=== PATIENT | male | born 2000 | race Caucasian/White ===

== ENCOUNTER 2024-08-18 11:14 | Inpatient (IN) | payer MEDICAID ==
[~2024-08-18] VITALS: Ht 177.8 cm; Wt 97.5 kg
[2024-08-18] MEDS: SODIUM CHLORIDE 0.9% 1,000 ML IVB ONE (12:15)
--- NOTE | 2024-08-18 12:24 | ED.PDOC ---
History of Present Illness HPI Comments 24 y/o M, with PMHx of kidney stones presents to the ED for CC of generalized weakness. Patient states, he has been experiencing symptoms of weakness onset, [id number]. Patient reports, being seen at [facility] for symptoms and being told to have bradycardia accompanied by urolithiasis and pyelone phritis. Patient endorses, being admitted to [facility] for symptoms however, symptoms have not resolved and he has returned to the facility on x3 separate occasions. Patient denies fever, chills, sweats, or cough. No other symptoms or modifying factors presents at this time. Chief Complaint: Flank Pain Time Seen by MD: 11:30 Primary Care Provider: Dr. Avani Brock Reviewed Notes: Nurses Notes, Medications, Allergies Allergies: Coded Allergies: NO KNOWN ALLERGIES (Unverified , 09/19/11) Information Source: Patient Mode of Arrival: Ambulatory Severity: Moderate Timing: Months Duration: Since onset Prehospital treatment: None Past Medical History PAST MEDICAL HISTORY: Kidney Stones Surgical History: Denies all surgeries Family History Family History: Unobtainable Social History Smoker: Non-Smoker Alcohol: Denies ETOH Use Drugs: Denies Drug Use Lives In: Home Constitutional: reports: weakness; denies: chills, diaphoresis, fatigue, fever, malaise, sweats, others EENTM: denies: blurred vision, double vision, ear bleeding, ear discharge, ear drainage, ear pain, ear ringing, eye pain, eye redness, hearing loss, mouth pain, mouth swelling, nasal discharge, nose bleeding, nose congestion, nose pain, photophobia, tearing, throat pain, throat swelling, voice changes, others Respiratory: reports: shortness of breath; denies: cough, hemoptysis, orthopnea, SOB at rest, SOB with excertion, stridor, wheezing, others Cardiovascular: reports: chest pain; denies: dizzy spells, diaphoresis, Dyspnea on exertion, edema, irregular heart beat, left arm pain, lightheadedness, palpitations, PND, syncope, others Gastrointestinal: reports: diarrhea, nausea, vomiting; denies: abdomen distended, abdominal pain, blood streaked bowels, constipated, dysphagia, difficulty swallowing, hematemesis, melena, poor appetite, poor fluid intake, rectal bleeding, rectal pain, others Genitourinary: denies: burning, dysuria, flank pain, frequency, hematuria, incontinence, penile discharge, penile sore, pain, testicle pain, testicle swelling, urgency, others Neurological: denies: dizziness, fainting, headache, left sided numbness, left sided weakness, numbness, paresthesia, pre-existing deficit, right sided numbness, right sided weakness, seizure, speech problems, tingling, tremors, weakness, others Musculoskeletal: denies: back pain, gout, joint pain, joint swelling, muscle pain, muscle stiffness, neck pain, others Integumetry: denies: bruises, change in color, change in hair/nails, dryness, laceration, lesions, lumps, rash, wounds, others Allergic/Immunocompromised: denies: Difficulty Healing, Frequent Infections, Hives, Itching, others Hematologic/Lymphatic: denies: anemia, blood clots, easy bleeding, easy bruising, swollen glands, others Endocrine: denies: excessive hunger, excessive sweating, excessive thirst, excessive urination, flushing, intolerance to cold, intolerance to heat, unexplained weight gain, unexplained weight loss, others Psychiatric: denies: anxiety, bipolar disorder, depression, hopeless, panic disorder, schizophrenia, sleepless, suicidal, others All Other Systems: Reviewed and Negative Physical Exam General Appearance: Mild Distress, Moderate Distress HEENT: Normal ENT Inspection, Pharynx Normal, TMs Normal Neck: Full Range of Motion, Non-Tender, Normal, Normal Inspection Respiratory: Chest Non-Tender, Lungs Clear, No Accessory Muscle Use, No Respiratory Distress, Normal Breath Sounds Cardiovascular: No Edema, No JVD, No Murmur, No Gallop, Normal Peripheral Pulses, Regular Rate/Rhythm Breast Exam: Deferred Gastrointestinal: No Organomegaly, No Pulsatile Mass, Normal Bowel Sounds, Soft, Tenderness, Other (Right costovertebral angle very painful probably from a kidney stone) Genitalia: Deferred Pelvic: Deferred Rectal: Deferred Extremities: No calf tenderness, Normal capillary refill, Normal inspection, Normal range of motion, Non-tender, No pedal edema Neurologic: Alert, crop nutrition scientist II-XII nml as Tested, No Motor Deficits, Normal Affect, Normal Mood, No Sensory Deficits Cerebellar Function: Normal Reflexes: Normal Skin: Dry, Normal Color, Warm Peripheral Pulses: 1+ carotid (R), 1+ carotid (L) Lymphatic: No Adenopathy Was a procedure done? Was a procedure done?: No EKG EKG : Pulse Rate (adult): [address] [place]: Normal Cardiac Rhythm: NSR, PAC's Differential Dx Considerations may include: electrolyte imbalance, infection, dehydration, anemia ureteral calculus X-Ray, Labs, Meds, VS Vital Signs Date Time Temp Pulse Resp B/P (MAP) Pulse Ox O2 Delivery O2 Flow Rate FiO2 08/18/24 16:00 98.3 97 14 100/55 (70) 100 98.3 08/18/24 14:15 90 12 100 Nasal Cannula* 2 28 08/18/24 14:15 98.2 90 12 110/59 (76) 100 98.2 08/18/24 13:05 82 08/18/24 12:49 97.7 57 20 122/81 (95) 99 97.7 08/18/24 12:49 57 20 99 Room Air 08/18/24 11:50 98.0 62 20 135/78 (97) 99 98.0 08/18/24 11:23 82 08/18/24 11:20 97.9 97 20 142/92 (109) 98 97.9 Lab Test 08/18/24 12:34 08/18/24 11:23 08/18/24 11:19 Range/Units White Blood Count 13.4 H 4.4-10.8 10^3/uL Red Blood Count 5.23 4.5-5.90 10^6/uL Hemoglobin 16.6 13.5-17.5 g/dL Hematocrit 46.2 41.0-53.0 % Mean Corpuscular Volume 88.3 80.0-100.0 fL Mean Corpuscular Hemoglobin 31.8 28.0-32.0 pg Mean Corpuscular Hemoglobin Concent 36.0 32.0-36.0 g/dL Red Cell Distribution Width 13.0 11.8-14.3 % Platelet Count 294 140-450 10^3/uL Mean Platelet Volume 8.7 6.9-10.8 fL Neutrophils (%) (Auto) 81.5 H 37.0-80.0 % Lymphocytes (%) (Auto) 10.7 10.0-50.0 % Monocytes (%) (Auto) 7.4 0.0-12.0 % Eosinophils (%) (Auto) 0.0 0.0-7.0 % Basophils (%) (Auto) 0.4 0.0-2.0 % Neutrophils # (Auto) 11.0 H 1.6-8.6 10 ^3/uL Lymphocytes # (Auto) 1.4 0.4-5.4 10 ^3/uL Monocytes # (Auto) 1.0 0-1.3 10 ^3/uL Eosinophils # (Auto) 0 0-0.8 10 ^3/uL Basophils # (Auto) 0.1 0-0.2 10 ^3/uL Nucleated Red Blood Cells 0.8 % D-Dimer, Quantitative < 0.19 0.0-0.49 mg/L FEU Sodium Level 140 136-145 mmol/L Potassium Level 4.1 3.5-5.1 mmol/L Chloride Level 104 98-107 mmol/L Carbon Dioxide Level 19 L 20-31 mmol/L Anion Gap 17 H 5-15 Blood Urea Nitrogen 16 9-23 mg/dL Creatinine 1.69 H 0.700-1.30 mg/dL Glomerular Filtration Rate Calc 57 >90 mL/min BUN/Creatinine Ratio 9.5 L 10.0-20.0 Serum Glucose 99 74-106 mg/dL Calcium Level 9.9 8.7-10.4 mg/dL Magnesium Level 2.0 1.6-2.6 mg/dL Total Bilirubin 0.9 0.2-1.0 mg/dL Aspartate Amino Transferase (AST) 19 <34 U/L Alanine Aminotransferase (ALT) 32 7-40 U/L Alkaline Phosphatase 89 46-116 U/L Total Protein 6.9 5.7-8.2 g/dL Albumin 4.9 H 3.2-4.8 g/dL Lipase 51 12-53 U/L Urine Color Yellow Yellow Urine Clarity Clear Clear Urine pH 6.0 5.0-9.0 Urine Specific [place] 1.035 1.001-1.035 Urine Protein Trace H Negative Urine Ketones 3+ H Negative Urine Blood Negative Negative /uL Urine Nitrite Negative Negative Urine Bilirubin Negative Negative Urine Urobilinogen Normal Negative mg/dL Urine Leukocyte Esterase Negative Negative /uL Urine RBC 3 0 - 3 /hpf Urine Microscopic WBC 3 0-3 /HPF Urine Squamous Epithelial Cells None seen <5 /hpf Urine Bacteria None seen None Seen /hpf Urine Mucus Few None Seen Urine Glucose Normal Normal mg/dL Urine Opiates Screen Neg NEGATIVE Urine Fentanyl Screen Neg NEGATIVE Urine Barbiturates Screen Neg NEGATIVE Urine Phencyclidine Screen Neg NEGATIVE Urine Amphetamines Screen Neg NEGATIVE Urine Benzodiazepines Screen Neg NEGATIVE Urine Cocaine Screen Neg NEGATIVE Urine Cannabinoids Screen Pos NEGATIVE POC Glucose 107 H 70-106 mg/dl Current Medications Medications (Trade) Dose Ordered Sig/Ryan Route Start Time Stop Time Status Last Admin Sodium Chloride 1,000 ml @ 1,000 mls/hr Q1H ONCE IVB 08/18/24 12:15 08/18/24 13:14 DC 08/18/24 12:15 Ondansetron HCl (Zofran) 8 mg ONCE ONCE IV 08/18/24 13:15 08/18/24 13:16 DC 08/18/24 13:21 Ketorolac Tromethamine (Toradol Injection) 30 mg ONCE ONCE IV 08/18/24 13:15 08/18/24 13:16 DC 08/18/24 13:19 [place] [id number] Ph: [phone] DIAGNOSTIC IMAGING Diagnostic Imaging Report : [id number] Signed PATIENT: LEYLA MORALES ACCT: [id number] UNIT: [id number] : 2000 LOC: ER ROOM / BED: / AGE / SEX: 24 / M ADM STATUS: REG ER SERVICE 1209 ORDERING PHYSICIAN: JESUS LOVELL MD PROCEDURE(s): CXR2 - CHEST TWO VIEWS ROUTINE REASON: sob ORDER NUMBER(s): [id number], ACCESSION NUMBER(s): [id number] CHEST RADIOGRAPH Indication: sob Technique: Frontal and lateral view of the chest was obtained Comparison: None FINDINGS: Lines and Tubes: None Lungs: Clear Pleura: No effusion. No pneumothorax. Cardiomediastinal contours: Unremarkable Bones: Unremarkable IMPRESSION: 1. No evidence of acute disease. ATED BY: ERNESTINE SCHNEIDER MD DICTATED DATE/TIME: 08/18/24 1237 SIGNED BY: ERNESTINE SCHNEIDER MD SIGNED DATE/TIME: 08/18/24 1237 CC: [place] [id number] Ph: [phone] DIAGNOSTIC IMAGING Diagnostic Imaging Report : [id number] Signed PATIENT: LEYLA MORALES ACCT: [id number] UNIT: [id number] : 2000 LOC: ER ROOM / BED: / AGE / SEX: 24 / M ADM STATUS: REG ER SERVICE 1211 ORDERING PHYSICIAN: JESUS LOVELL MD PROCEDURE(s): ABPL - CT AB PEL WO CON-NO ORAL OR IV REASON: Ureteral calculus ORDER NUMBER(s): [id number], ACCESSION NUMBER(s): [id number] Exam: CT CT AB PEL WO CON-NO ORAL OR IV History: Ureteral calculus Comparison Study: None Technique: Multidetector spiral CT of the abdomen was performed from lung bases to pubic symphysis. Imaging was performed without IV contrast. Axial, coronal and sagittal multiplanar reformats were obtained from the axial data set by the technologist. Radiation Dose : 1. Abdomen/Pelvis: CTDIvol 10.97 mGy, DLP 673.84 mGy*cm. Findings: Evaluation of solid organs is limited due to lack of intravenous contrast use. Lung Bases: No acute or significant lung base finding. Normal heart size. No pleural or pericardial effusion. Liver: The liver is normal in size. No focal lesions. Gallbladder and Biliary Tree: Unremarkable Spleen: Unremarkable Pancreas: The pancreas is grossly normal in appearance. Adrenal Glands: Unremarkable Kidneys: 3 mm distal right ureteral calculus. Moderate right renal hydronephrosis. Bladder: Grossly unremarkable for degree of distention. Bowel: The stomach is grossly normal in appearance. Small bowel and colon are normal in caliber and distribution. The appendix is not visualized; however, no secondary findings of acute appendicitis identified. Ascites: Absent Lymphadenopathy: No mesenteric, retroperitoneal or periportal lymphadenopathy. Abdominal Wall and Mesentery: Unremarkable. Vasculature: The visualized abdominal aorta is normal in size and caliber. Evaluation of abdominal and pelvic vessels is limited due to lack of intravenous contrast. Pelvic Organs: Unremarkable Musculoskeletal: No aggressive focal bony lesions, acute fractures or dislocation. IMPRESSION: 1. 3 mm distal right ureteral calculus with moderate right hydroureteronephrosis Radiation optimization: All CT scans at this facility use at least one of these dose optimization techniques: automated exposure control mA and/or kV adjustment per patient size (includes targeted exams where dose is matched to clinical indication) or iterative reconstruction. ATED BY: ERNESTINE SCHNEIDER MD DICTATED DATE/TIME: 08/18/241245 SIGNED BY: ERNESTINE SCHNEIDER MD SIGNED DATE/TIME: 08/18/241245 CC: X-Ray, Labs, Meds, VS Comment Course in the emergency department eventful patient came in because of generalized weakness nausea vomiting diarrhea and a kidney stone which want dislodged patient was admitted at August 01 to 08/05/2024 because of syncope but also had a kidney stone at the time they were going to admit him to dislodged the the stone but for some reason did not The chest x-ray is normal EKG shows sinus arrhythmia at 82 CBC [address]461 with 81.5% neutrophils and normal H&H CT shows a 3 mm right-sided UVJ with a hydro ureteral nephrosis Urine shows 3+ ketones UDS positive for marijuana D-dimer less than 0.19 CMP negative Lipase 51 Patient with a kidney stone for too long may need to see Urology for further care Time of 1ST Reevaluation: 12:00 Reevaluation 1ST: Unchanged Time of 2ND Reevaluation: 17:02 Reevaluation 2ND: Improved Consultation: PCP, Urology Patient Education/Counseling: Diagnosis, Treatment, Prognosis Family Education/Counseling: Diagnosis, Treatment, Prognosis, No Family Present Departure 1 Departure Time of Disposition: 17:02 Impression: Primary Impression: Generalized weakness Additional Impressions: Gastroenteritis Ureteral calculus, right Disposition: 09 ADMITTED INPATIENT Admit to: Med Surg Condition: Fair Critical Care Note Critical Care Time?: No Stability Stability form required: Yes Unstable for transfer: Requires medication (Requires Med for stabilization) Heart Score Heart Score: Heart Score Response (Comments) Value History N/A 0 EKG N/A 0 Age <45 0 Risk Factors No known risk factors 0 Troponin N/A 0 Total 0 I personally scribed for JESUS LOVELL MD ([email or web address]) on 08/18/24 at 12:24. Electronically submitted by Nohemy Yip ([email or web address]). I personally scribed for JESUS LOVELL MD ([email or web address]) on 08/18/24 at 12:41. Electronically submitted by Nohemy Yip ([email or web address]). I personally scribed for JESUS LOVELL MD ([email or web address]) on 08/18/24 at 12:57. Electronically submitted by Nohemy Yip [email or web address]). JESUS LOVELL MD Aug 18, 2024 12:24
--- NOTE | 2024-08-18 12:39 | DVH ---
CHEST RADIOGRAPH Indication: sob Technique: Frontal and lateral view of the chest was obtained Comparison: None FINDINGS: Lines and Tubes: None Lungs: Clear Pleura: No effusion. No pneumothorax. Cardiomediastinal contours: Unremarkable Bones: Unremarkable IMPRESSION: 1. No evidence of acute disease.
[2024-08-18 12:48] LABS: Basophils # (auto) 0.1 10 ^3/uL (0-0.2); Basophils % (auto) 0.4 % (0.0-2.0); Eosinophils # (auto) 0 10 ^3/uL (0-0.8); Hematocrit 46.2 % (41.0-53.0); Hemoglobin 16.6 g/dL (13.5-17.5); Lymphocytes # (auto) 1.4 10 ^3/uL (0.4-5.4); Lymphocytes % (auto) 10.7 % (10.0-50.0); Mean Corpuscular Hemoglobin 31.8 pg (28.0-32.0); Mean Corpuscular Volume 88.3 fL (80.0-100.0); Monocytes % (auto) 7.4 % (0.0-12.0); Neutrophils % (auto) 81.5 % (37.0-80.0); Nucleated Red Blood Cells % 0.8 %; Platelet Count (auto) 294 10^3/uL (140-450); Red Blood Cells 5.23 10^6/uL (4.5-5.90); White Blood Cell 13.4 10^3/uL (4.4-10.8)
--- NOTE | 2024-08-18 12:48 | DVH ---
Exam: CT CT AB PEL WO CON-NO ORAL OR IV History: Ureteral calculus Comparison Study: None Technique: Multidetector spiral CT of the abdomen was performed from lung bases to pubic symphysis. Imaging was performed without IV contrast. Axial, coronal and sagittal multiplanar reformats were ob tained from the axial data set by the technologist. Radiation Dose : 1. Abdomen/Pelvis: CTDIvol 10.97 mGy, DLP 673.84 mGy*cm. Findings: Evaluation of solid organs is limited due to lack of intravenous contrast use. Lung Bases: No acute or significant lung base finding. Normal heart size. No pleural or pericardial effusion. Liver: The liver is normal in size. No focal lesions. Gallbladder and Biliary Tree: Unremarkable Spleen: Unremarkable Pancreas: The pancreas is grossly normal in appearance. Adrenal Glands: Unremarkable Kidneys: 3 mm distal right ureteral calculus. Moderate right renal hydronephrosis. Bladder: Grossly unremarkable for degree of distention. Bowel: The stomach is grossly normal in appearance. Small bowel and colon are normal in caliber and d istribution. The appendix is not visualized; however, no secondary findings of acute appendicitis id entified. Ascites: Absent Lymphadenopathy: No mesenteric, retroperitoneal or periportal lymphadenopathy. Abdominal Wall and Mesentery: Unremarkable. Vasculature: The visualized abdominal aorta is normal in size and caliber. Evaluation of abdominal a nd pelvic vessels is limited due to lack of intravenous contrast. Pelvic Organs: Unremarkable Musculoskeletal: No aggressive focal bony lesions, acute fractures or dislocation. IMPRESSION: 1. 3 mm distal right ureteral calculus with moderate right hydroureteronephrosis Radiation optimization: All CT scans at this facility use at least one of these dose optimization rocio hniques: automated exposure control mA and/or kV adjustment per patient size (includes targeted exam s where dose is matched to clinical indication) or iterative reconstruction.
[2024-08-18 13:07] LABS: Alanine Aminotransferase 32 U/L (7-40); Alkaline Phosphatase 89 U/L (46-116); Anion Gap 17 (5-15); Aspartate Aminotransferase 19 U/L (<34); BUN/Creatinine Ratio 9.5 (10.0-20.0); Blood Urea Nitrogen 16 mg/dL (9-23); Calcium 9.9 mg/dL (8.7-10.4); Chloride 104 mmol/L (98-107); Glucose 99 mg/dL (74-106); Lipase 51 U/L (12-53); Potassium 4.1 mmol/L (3.5-5.1); Sodium 140 mmol/L (136-145); Total Protein 6.9 g/dL (5.7-8.2)
[2024-08-18 13:08] LABS: Albumin 4.9 g/dL (3.2-4.8); Bilirubin, Total 0.9 mg/dL (0.2-1.0); Carbon Dioxide 19 mmol/L (20-31)
[2024-08-18] MEDS: KETOROLAC TROMETH 30 MG/ML 1ML VIAL IV ONE (13:19)
[2024-08-18] MEDS: ONDANSETRON HCL 4 MG/2 ML VIAL IV ONE (13:21)
[2024-08-18 14:15] VITALS: PULSE 90; RESP 12; O2SAT 100
[2024-08-18 15:07] LABS: Urine Bacteria None Seen /hpf (None Seen)
[2024-08-18 15:15] LABS: Urine Blood Negative /uL (Negative); Urine Clarity Clear (Clear); Urine Color Yellow (Yellow); Urine Mucus FEW (None Seen); Urine Protein, UAD TRACE (Negative); Urine Specific Gravity 1.035 (1.001-1.035); Urine Squamous Epithelial Cell None Seen /hpf (<5); Urine Urobilinogen Normal (Negative); Urine WBC 3 /HPF (0-3)
[2024-08-18 15:28] LABS: Barbiturate Scree,Urine Neg (NEGATIVE); Cannabinoid Screen, Urine Pos (NEGATIVE); Opiate Scree,Urine Neg (NEGATIVE)
[2024-08-18 15:52] LABS: Amphetamine Screen, Urine Neg (NEGATIVE); Benzodiazephine Screen, Urine Neg (NEGATIVE); Cocaine Screen, Urine Neg (NEGATIVE); Phencyclidine Screen, Urine Neg (NEGATIVE)
--- NOTE | 2024-08-18 19:24 | DVHHP2 ---
History of Present Illness Reason for Visit: Hydroureteronephrosis History of Present Illness The patient is a 24-year-old male with past medical history of kidney stones who presented to [facility] ED with complaint of generalized weakness. Patient reports he has been experiencing weakness for the past 1 month, seen at [facility] for symptoms and being told to have bradycardia accompanied by urolithiasis and pyelonephritis, admitted to [facility] for symptoms however, symptoms have not resolved and he has returned to the facility on x3 separate occasions. Patient was seen and evaluated in the ED, laboratory data shows WBC 13.4, platelets 294, sodium 140, potassium 4.1, BUN 16, creatinine 1.69, glucose 99, calcium 9.9, albumin 4.9, lipase 51, blood pressure 100/55, heart rate 96, temperature 98.3 F, O2 saturation 99% on oxygen. Abdomen/pelvis CT revealing 3 mm distal right ureteral calculus with moderate right hydroureteronephrosis. Patient was started on IV antibiotic regimen Rocephin, please see medication orders section in the computer. On my assessment, patient denied chest pain, no headache, no dizziness, no diaphoresis, currently on oxygen, no abdominal pain, no diarrhea, no nausea, no vomiting, no fever, no chills. Patient was admitted for further evaluation and medical management. Past Medical History Kidney Stones Past Surgical History Denies all surgeries Family History Reviewed, noncontributory to the management of this case. Past Social History The patient lives at home, denies smoking, alcohol or illicit drugs abuse. Review of Systems Constitutional: Yes: Weakness; No: Fever, Chills, Sweats, Malaise, Other Eyes: No: Pain, Vision change, Conjunctivae inflammation, Eyelid inflammation, Other, Redness ENT: No: Ear pain, Ear discharge, Nose pain, Nose discharge, Nose congestion, Mouth pain, Mouth swelling, Throat pain, Throat swelling, Other Respiratory: Shortness of breath; No: Cough, Dry, SOB with excertion, Wheezing, Hemoptysis, Pleuritic Pain, Sputum, Wheezing, Other Cardiovascular: Chest Pain; No: Palpitations, Orthopnea, Paroxysmal Noc. Dyspnea, Edema, Lt Headedness, Other Gastrointestinal: Nausea, Vomiting, Diarrhea; No: Abdominal Pain, Constipation, Melena, Hematochezia, Other Genitourinary: No Dysuria, No Frequency, No Incontinence, No Hematuria, No Retention, No Other Musculoskeletal: No: other, neck pain, shoulder pain, arm pain, back pain, hand pain, leg pain, foot pain Skin: No: Rash, Lesions, Jaundice, Bruising, Other Neurological: No: Weakness, Numbness, Incoordination, Change in speech, Confusion, Seizures, Other Allergies: Coded Allergies: NO KNOWN ALLERGIES (Unverified , 09/19/11) Exam Vital Signs Vital Signs Date Time Temp Pulse Resp B/P (MAP) Pulse Ox O2 Delivery O2 Flow Rate FiO2 08/18/24 16:00 98.3 97 14 100/55 (70) 100 98.3 08/18/24 14:15 Nasal Cannula* 2 28 General Appearance: Alert, Oriented X3, Cooperative, No acute distress HEENT: Atraumatic, PERRLA, EOMI, Mucous membr. moist/pink Respiratory: Clear to auscultation, Normal air movement Cardiovascular: Regular rate, Normal S1, Normal S2, No murmurs Abdominal: Normal bowel sounds, Soft, No hepatospenomegaly, No masses, Other (Reports tenderness) Extremities: No clubbing, No cyanosis, No edema, Normal pulses, No tenderness/swelling Skin: No rashes, No breakdown, No significant lesion Neuro: Normal gait, Normal speech, Strength at 5/5 X4 ext, Normal tone, Sensation intact, Cranial nerves 3-12 NL, Reflexes 2+ Psych/Mental Status: Mental status NL, Mood NL Labs/Xrays Labs Test 08/18/24 12:34 08/18/24 11:23 08/18/24 11:19 Range/Units White Blood Count 13.4 H 4.4-10.8 10^3/uL Red Blood Count 5.23 4.5-5.90 10^6/uL Hemoglobin 16.6 13.5-17.5 g/dL Hematocrit 46.2 41.0-53.0 % Mean Corpuscular Volume 88.3 80.0-100.0 fL Mean Corpuscular Hemoglobin 31.8 28.0-32.0 pg Mean Corpuscular Hemoglobin Concent 36.0 32.0-36.0 g/dL Red Cell Distribution Width 13.0 11.8-14.3 % Platelet Count 294 140-450 10^3/uL Mean Platelet Volume 8.7 6.9-10.8 fL Neutrophils (%) (Auto) 81.5 H 37.0-80.0 % Lymphocytes (%) (Auto) 10.7 10.0-50.0 % Monocytes (%) (Auto) 7.4 0.0-12.0 % Eosinophils (%) (Auto) 0.0 0.0-7.0 % Basophils (%) (Auto) 0.4 0.0-2.0 % Neutrophils # (Auto) 11.0 H 1.6-8.6 10 ^3/uL Lymphocytes # (Auto) 1.4 0.4-5.4 10 ^3/uL Monocytes # (Auto) 1.0 0-1.3 10 ^3/uL Eosinophils # (Auto) 0 0-0.8 10 ^3/uL Basophils # (Auto) 0.1 0-0.2 10 ^3/uL Nucleated Red Blood Cells 0.8 % D-Dimer, Quantitative < 0.19 0.0-0.49 mg/L FEU Sodium Level 140 136-145 mmol/L Potassium Level 4.1 3.5-5.1 mmol/L Chloride Level 104 98-107 mmol/L Carbon Dioxide Level 19 L 20-31 mmol/L Anion Gap 17 H 5-15 Blood Urea Nitrogen 16 9-23 mg/dL Creatinine 1.69 H 0.700-1.30 mg/dL Glomerular Filtration Rate Calc 57 >90 mL/min BUN/Creatinine Ratio 9.5 L 10.0-20.0 Serum Glucose 99 74-106 mg/dL Calcium Level 9.9 8.7-10.4 mg/dL Magnesium Level 2.0 1.6-2.6 mg/dL Total Bilirubin 0.9 0.2-1.0 mg/dL Aspartate Amino Transferase (AST) 19 <34 U/L Alanine Aminotransferase (ALT) 32 7-40 U/L Alkaline Phosphatase 89 46-116 U/L Total Protein 6.9 5.7-8.2 g/dL Albumin 4.9 H 3.2-4.8 g/dL Lipase 51 12-53 U/L Urine Color Yellow Yellow Urine Clarity Clear Clear Urine pH 6.0 5.0-9.0 Urine Specific [place] 1.035 1.001-1.035 Urine Protein Trace H Negative Urine Ketones 3+ H Negative Urine Blood Negative Negative /uL Urine Nitrite Negative Negative Urine Bilirubin Negative Negative Urine Urobilinogen Normal Negative mg/dL Urine Leukocyte Esterase Negative Negative /uL Urine RBC 3 0 - 3 /hpf Urine Microscopic WBC 3 0-3 /HPF Urine Squamous Epithelial Cells None seen <5 /hpf Urine Bacteria None seen None Seen /hpf Urine Mucus Few None Seen Urine Glucose Normal Normal mg/dL Urine Opiates Screen Neg NEGATIVE Urine Fentanyl Screen Neg NEGATIVE Urine Barbiturates Screen Neg NEGATIVE Urine Phencyclidine Screen Neg NEGATIVE Urine Amphetamines Screen Neg NEGATIVE Urine Benzodiazepines Screen Neg NEGATIVE Urine Cocaine Screen Neg NEGATIVE Urine Cannabinoids Screen Pos NEGATIVE POC Glucose 107 H 70-106 mg/dl PATIENT: LEYLA MORALES ACCT: [id number] UNIT: [id number] : 2000 LOC: ER ROOM / BED: / AGE / SEX: 24 / M ADM STATUS: REG ER SERVICE 1211 ORDERING PHYSICIAN: JESUS LOVELL MD PROCEDURE(s): ABPL - CT AB PEL WO CON-NO ORAL OR IV REASON: Ureteral calculus ORDER NUMBER(s): [id number], ACCESSION NUMBER(s): [id number] Exam: CT CT AB PEL WO CON-NO ORAL OR IV History: Ureteral calculus Comparison Study: None Technique: Multidetector spiral CT of the abdomen was performed from lung bases to pubic symphysis. Imaging was performed without IV contrast. Axial, coronal and sagittal multiplanar reformats were obtained from the axial data set by the technologist. Radiation Dose: 1. Abdomen/Pelvis: CTDIvol 10.97 mGy, DLP 673.84 mGy*cm. Findings: Evaluation of solid organs is limited due to lack of intravenous contrast use. Lung Bases: No acute or significant lung base finding. Normal heart size. No pleural or pericardial effusion. Liver: The liver is normal in size. No focal lesions. Gallbladder and Biliary Tree: Unremarkable Spleen: Unremarkable Pancreas: The pancreas is grossly normal in appearance. Adrenal Glands: Unremarkable Kidneys: 3 mm distal right ureteral calculus. Moderate right renal hydronephrosis. Bladder: Grossly unremarkable for degree of distention. Bowel: The stomach is grossly normal in appearance. Small bowel and colon are normal in caliber and distribution. The appendix is not visualized; however, no secondary findings of acute appendicitis identified. Ascites: Absent Lymphadenopathy: No mesenteric, retroperitoneal or periportal lymphadenopathy. Abdominal Wall and Mesentery: Unremarkable. Vasculature: The visualized abdominal aorta is normal in size and caliber. Evaluation of abdominal and pelvic vessels is limited due to lack of intravenous contrast. Pelvic Organs: Unremarkable Musculoskeletal: No aggressive focal bony lesions, acute fractures or dislocation. IMPRESSION: 1. 3 mm distal right ureteral calculus with moderate right hydroureteronephrosis ORDERING PHYSICIAN: JESUS LOVELL MD PROCEDURE(s): CXR2 - CHEST TWO VIEWS ROUTINE REASON: sob ORDER NUMBER(s): [id number], ACCESSION NUMBER(s): [id number] CHEST RADIOGRAPH Indication: sob Technique: Frontal and lateral view of the chest was obtained Comparison: None FINDINGS: Lines and Tubes: None Lungs: Clear Pleura: No effusion. No pneumothorax. Cardiomediastinal contours: Unremarkable Bones: Unremarkable IMPRESSION: 1. No evidence of acute disease. Assessment/Plan Assessment/Plan Hydroureteronephrosis Ureteral calculus, right Leukocytosis, unspecified Generalized weakness Intractable nausea and vomiting Plan 1. Admit to med surge unit 2. Breathing treatment 3. Pain control management 4. IV antibiotic management 5. Management of fluids and electrolytes 6. Consultation for hospitalist 7. Diagnostic test abdomen/pelvis CT 8. DVT prophylaxis on SCDs 9. Repeat labs CBC, CMP in a.m. 10. Home medication reviewed and reconciled 11. Continue with current medical management 12. Treatment plan discussed with patient and RN. Patient verbalized understanding. Plan discussed with: Patient, Other (RN) My Orders Orders - EMPERATRIZ MENDOZA DNP Procedure Category Date Status Time Tamsulosin PHA 08/19/24 Verified Hydrochloride (Flomax) 18:00 Pantoprazole PHA 08/19/24 Verified (Protonix) 10:00 * Urology Consult CONS 08/18/24 Verified 19:18 Admit ADMIT 08/18/24 Verified 19:18 Allergies JAY 08/18/24 Verified 19:18 Code Status CODE 08/18/24 Verified 19:18 Sodium Chloride Lock PHA 08/18/24 Verified (Saline Lock Ns) 22:00 Oxygen Per Hour RT 08/18/24 Verified 19:18 Hydrocodone-Acet PHA 08/18/24 Verified 5/325mg Tab ([place] 19:30 Ondansetron Hcl PHA 08/18/24 Verified (Zofran) 19:30 Docusate Sodium PHA 08/18/24 Verified Capsule (Colace 19:30 Complete Blood Count LAB 08/19/24 Verified 04:00 Comprehensive LAB 08/19/24 Verified Metabolic Panel 04:00 Condition: Serious JAY 08/18/24 Verified 19:18 Acetaminophen Tablet PHA 08/18/24 Verified (Tylenol Tablet) 19:30 Problem List: (1) Hydroureteronephrosis (2) Ureteral calculus, right (3) Leukocytosis, unspecified (4) Generalized weakness (5) Intractable nausea and vomiting Date of Service: Aug 18, 2024 Billing Provider: EMPERATRIZ MENDOZA DNP Common Visit Codes: [id number] INP/OBS CARE (HIGH) EMPERATRIZ MENDOZA DNP Aug 18, 2024 19:24
[2024-08-18 19:30] VITALS: O2SAT 100
[2024-08-18] MEDS ORDERED: DOCUSATE SOD 100 MG CAP PO PRN (19:30)
[2024-08-18] MEDS ORDERED: NITROGLYCERIN 0.4 MG SL TAB SL PRN (19:30)
[2024-08-18] MEDS ORDERED: MORPHINE SULFATE INJ 2 MG/ml SYRG IV PRN (19:30)
[2024-08-18] MEDS ORDERED: ACETAMINOPHEN 325 MG TAB PO PRN (19:30)
[2024-08-18] MEDS: cefTRIAXone 1GM/50ML D5W 50 ML IV ONE (20:40)
[2024-08-18] MEDS: ONDANSETRON HCL 4 MG/2 ML VIAL IV PRN (21:01)
[2024-08-18] MEDS: SODIUM CHLOR 0.9% PF (SALINE LOCK) 10ML VIAL/SYR IV SCH (22:51)
[2024-08-19] VITALS (13 sets, daily range): BP systolic 98–127; BP diastolic 60–82; PULSE 50–92; RESP 12–20; TEMP 97.4–98.6; O2SAT 97–100
[2024-08-19] MEDS: HYDROcodone-ACET 5/325MG TAB PO PRN (04:16)
[2024-08-19 04:42] LABS: Basophils # (auto) 0 10 ^3/uL (0-0.2); Basophils % (auto) 0.3 % (0.0-2.0); Eosinophils # (auto) 0.1 10 ^3/uL (0-0.8); Eosinophils % (auto) 1.2 % (0.0-7.0); Hematocrit 42.6 % (41.0-53.0); Hemoglobin 15.3 g/dL (13.5-17.5); Lymphocytes # (auto) 2.4 10 ^3/uL (0.4-5.4); Lymphocytes % (auto) 26.1 % (10.0-50.0); Mean Corpuscular Hemoglobin 32.2 pg (28.0-32.0); Mean Corpuscular Hgb Conc. 35.8 g/dL (32.0-36.0); Mean Corpuscular Volume 89.8 fL (80.0-100.0); Monocytes # (auto) 0.9 10 ^3/uL (0-1.3); Monocytes % (auto) 9.3 % (0.0-12.0); Neutrophils # (auto) 5.8 10 ^3/uL (1.6-8.6); Neutrophils % (auto) 63.1 % (37.0-80.0); Nucleated Red Blood Cells % 0.2 %; Platelet Count (auto) 246 10^3/uL (140-450); Red Blood Cells 4.74 10^6/uL (4.5-5.90); Red Cell Distribution Width 12.8 % (11.8-14.3); White Blood Cell 9.3 10^3/uL (4.4-10.8)
[2024-08-19 04:58] LABS: Alanine Aminotransferase 26 U/L (7-40); Albumin 4.2 g/dL (3.2-4.8); Alkaline Phosphatase 71 U/L (46-116); Anion Gap 11 (5-15); Aspartate Aminotransferase 12 U/L (<34); BUN/Creatinine Ratio 9.2 (10.0-20.0); Bilirubin, Total 0.7 mg/dL (0.2-1.0); Blood Urea Nitrogen 16 mg/dL (9-23); Calcium 9.7 mg/dL (8.7-10.4); Carbon Dioxide 24 mmol/L (20-31); Glucose 97 mg/dL (74-106); Sodium 143 mmol/L (136-145); Total Protein 6.3 g/dL (5.7-8.2)
[2024-08-19 05:00] LABS: Chloride 108 mmol/L (98-107); Potassium 3.4 mmol/L (3.5-5.1)
[2024-08-19] MEDS: cefTRIAXone 1GM/50ML D5W 50 ML IV SCH (09:19)
[2024-08-19] MEDS: PANTOPRAZOLE 40 MG/10 ML VIAL INJ IV SCH (09:20)
[2024-08-19] MEDS ORDERED: MORPHINE SULFATE 4 MG/ML SYR/VIAL IV PRN (12:45)
[2024-08-19] MEDS: SODIUM CHLORIDE 0.9% 1,000 ML IV ONE (13:26)
--- NOTE | 2024-08-19 16:13 | DVHPN2 ---
Assessment/Plan Assessment/Plan Progress note 24 M with recent admission to OSH with kidney stones, pyelonephritis admitted for same. patient had 3 and 4mm stones per prior ct, on in house imaging we found 3mm stone with hydrouereteronephrosis. with nausea, vomiting. pt is sexually active with 1 female partner. completed home abx course physical exam aox4 PERLLA MMM CTAB s1 s2 rrr suprapubic and cva tenderness no le edema labs ekg imaging recviewed assessment and plan R hydroureteronephrosis R uretheral stones complicated and unresolving with expulsive treatment pyelonephritis? ceftriaxone ucx iv fluids flomax pain mgmt urology urine gc diet reg dvt ppx ambulatory Plan discussed with: Patient My Orders Orders - EFRA AZEVEDO MD Procedure Category Date Status Time Tamsulosin PHA 08/19/24 In Process Hydrochloride (Flomax) 18:00 Morphine Sulfate PHA 08/19/24 In Process Injection 12:45 Chlamydia/Gc LAB 08/19/24 Logged Amplification 12:47 Date of Service: Aug 19, 2024 Billing Provider: EFRA AZEVEDO MD Common Visit Codes: [id number] SAME DATE (HIGH) EFRA AZEVEDO MD Aug 19, 2024 16:13
[2024-08-19] MEDS: TAMSULOSIN HYDROCHLORIDE 0.4 MG CAP PO SCH (17:46)
[2024-08-19] MEDS ORDERED: TAMSULOSIN HYDROCHLORIDE 0.4 MG CAP PO SCH (18:00)
[2024-08-20] VITALS (8 sets, daily range): BP systolic 105–122; BP diastolic 66–74; PULSE 81–98; RESP 16–20; TEMP 97.5–98.7; O2SAT 98–99
--- NOTE | 2024-08-20 10:32 | DVH ---
INDICATION: TRACY TECHNIQUE: Multiple real-time sonographic images of the kidneys and bladder were obtained. COMPARISON: None FINDINGS: The right kidney measures 10 cm in length, which is normal in size. There is normal echogen icity of the right kidney. Moderate right hydronephrosis. The left kidney measures 10 cm in length, which is normal in size. There is normal echogenicity of th e left kidney. No hydronephrosis. No large intraluminal masses are seen in the bladder. IMPRESSION: Moderate right hydronephrosis. 4 mm right ureteral UVJ stone.
[2024-08-20] MEDS: MANNITOL FTV 25% 12.5 GM/50 ML 50 ML IV ONE (10:39)
--- NOTE | 2024-08-20 12:33 | ECG ---
[facility] Test Date: 2024-08-18 Test Time: 11:23:54 Pat Name: LEYLA MORALES Department: ER Room: 0276 B Gender: M Telephone Order Clerk: JOVI : 2000 Requested By: JESUS LOVELL Order Number: [id number] Reading MD: Delfino Washington Measurements Intervals [place] Rate: 82 P: 67 NV: 164 QRS: 49 QRSD: 82 T: 49 QT: 351 QTc: 410 Interpretive Statements Sinus arrhythmia Electronically Signed On 08-21-2024 17:30:50 PDT by Delfino Washington Please click the below link to view image of tracing.
--- NOTE | 2024-08-20 14:20 | DVHPN2 ---
Assessment/Plan Assessment/Plan Progress note 24 M with recent admission to OSH with kidney stones, pyelonephritis admitted for same. patient had 3 and 4mm stones per prior ct, on in house imaging we found 3mm stone with hydrouereteronephrosis. with nausea, vomiting. pt is sexually active with 1 female partner. completed home abx course seen today, pain improved. US still show 4mm stone in UVJ with mod hydronephrosis. johnny worsening physical exam aox4 PERLLA MMM CTAB s1 s2 rrr suprapubic and cva tenderness no le edema labs ekg imaging recviewed assessment and plan R hydroureteronephrosis R uretheral stones complicated and unresolving with expulsive treatment pyelonephritis? ceftriaxone ucx iv fluids flomax pain mgmt urology urine gc trend cr diet reg dvt ppx ambulatory Plan discussed with: Patient My Orders Orders - EFRA AZEVEDO MD Procedure Category Date Status Time Kidney US 08/20/24 Resulted 09:31 Regular Diet DIET 08/20/24 Transmitted Lunch Date of Service: Aug 20, 2024 Billing Provider: EFRA AZEVEDO MD Common Visit Codes: [id number] INP/OBS CARE(HIGH) EFRA AZEVEDO MD Aug 20, 2024 14:20
--- NOTE | 2024-08-20 16:15 | DVHINCON2 ---
Date of service: Aug 20, 2024 Referring Physician Hospitalist Reason for Consultation 3 mm right distal ureteral stone History of Present Illness 24-year-old male with past medical history of kidney stones who presented to [facility] ED with complaint of generalized weakness. Patient reports he has been experiencing weakness for the past 1 month, seen at [facility] for symptoms and being told to have bradycardia accompanied by urolithiasis and pyelonephritis, admitted to [facility] for symptoms however, symptoms have not resolved and he has returned to the facility on x3 separate occasions. Patient was seen and evaluated in the E D, laboratory data shows WBC 13.4, platelets 294, sodium 140, potassium 4.1, BUN 16, creatinine 1.69, glucose 99, calcium 9.9, albumin 4.9, lipase 51, blood pressure 100/55, heart rate 96, temperature 98.3 F, O2 saturation 99% on oxygen. Abdomen/pelvis CT revealing 3 mm distal right ureteral calculus with moderate right hydroureteronephrosis. Patient was started on IV antibiotic r egimen Rocephin, please see medication orders section in the computer. On my assessment, patient denied chest pain, no headache, no dizziness, no diaphoresis, currently on oxygen, no abdominal pain, no diarrhea, no nausea, no vomiting, no fever, no chills. Patient was admitted for further evaluation and medical management. Currently patient is not having any pain and has not required any pain medication since yesterday Past Medical History Kidney Stones Family History: FH: brain aneurysm FH: cancer Allergies: Coded Allergies: NO KNOWN ALLERGIES (Unverified , 09/19/11) Current Medications Current Medications Medications (Trade) Dose Ordered Sig/Ryan Route PRN Reason Start Time Stop Time Status Last Admin Tamsulosin HCl (Flomax) 0.4 mg QPM PO 08/19/24 18:00 08/19/24 12:47 DC Tamsulosin HCl (Flomax) 0.8 mg QPM PO 08/19/24 18:00 08/19/24 17:46 Review of Systems Constitutional: Yes: Weakness; No: Fever, Chills, Sweats, Malaise, Other Eyes: No: Pain, Vision change, Conjunctivae inflammation, Eyelid inflammation, Other, Redness ENT: No: Ear pain, Ear discharge, Nose pain, Nose discharge, Nose congestion, Mouth pain, Mouth swelling, Throat pain, Throat swelling, Other Respiratory: Shortness of breath; No: Cough, Dry, SOB with excertion, Wheezing, Hemoptysis, Pleuritic Pain, Sputum, Wheezing, Other Cardiovascular: Chest Pain; No: Palpitations, Orthopnea, Paroxysmal Noc. Dyspnea, Edema, Lt Headedness, Other Gastrointestinal: Nausea, Vomiting, Diarrhea; No: Abdominal Pain, Constipation, Melena, Hematochezia, Other Genitourinary: No Dysuria, No Frequency, No Incontinence, No Hematuria, No Retention, No Other Musculoskeletal: No: other, neck pain, shoulder pain, arm pain, back pain, hand pain, leg pain, foot pain Skin: No: Rash, Lesions, Jaundice, Bruising, Other Neurological: No: Weakness, Numbness, Incoordination, Change in speech, Confusion, Seizures, Other Allergies: Coded Allergies: NO KNOWN ALLERGIES (Unverified , 09/19/11) Vital Signs Vital Signs Date Time Temp Pulse Resp B/P (MAP) Pulse Ox O2 Delivery O2 Flow Rate FiO2 08/20/24 12:20 98.7 85 18 120/72 (88) 99 98.7 08/20/24 08:00 Room Air* 0 21 Physical Exam Date Time Temp Pulse Resp B/P (MAP) Pulse Ox O2 Delivery O2 Flow Rate FiO2 08/18/24 16:00 98.3 97 14 100/55 (70) 100 98.3 08/18/24 14:15 Nasal Cannula* 2 28 General Appearance: Alert, Oriented X3, Cooperative, No acute distress HEENT: Atraumatic, PERRLA, EOMI, Mucous membr. moist/pink Respiratory: Clear to auscultation, Normal air movement Cardiovascular: Regular rate, Normal S1, Normal S2, No murmurs Abdominal: Normal bowel sounds, Soft, No hepatospenomegaly, No masses, Other (Reports tenderness) Extremities: No clubbing, No cyanosis, No edema, Normal pulses, No tenderness/swelling Skin: No rashes, No breakdown, No significant lesion Neuro: Normal gait, Normal speech, Strength at 5/5 X4 ext, Normal tone, Sensation intact, Cranial nerves 3-12 NL, Reflexes 2+ Psych/Mental Status: Mental status NL, Mood NL Labs/Diagnostic Data Labs Test 08/20/24 08:36 08/19/24 04:08 08/18/24 12:34 08/18/24 11:23 Range/Units White Blood Count 9.3 # 4.4-10.8 10^3/uL Red Blood Count 4.74 4.5-5.90 10^6/uL Hemoglobin 15.3 13.5-17.5 g/dL Hematocrit 42.6 41.0-53.0 % Mean Corpuscular Volume 89.8 80.0-100.0 fL Mean Corpuscular Hemoglobin 32.2 H 28.0-32.0 pg Mean Corpuscular Hemoglobin Concent 35.8 32.0-36.0 g/dL Red Cell Distribution Width 12.8 11.8-14.3 % Platelet Count 246 140-450 10^3/uL Mean Platelet Volume 8.8 6.9-10.8 fL Neutrophils (%) (Auto) 63.1 37.0-80.0 % Lymphocytes (%) (Auto) 26.1 10.0-50.0 % Monocytes (%) (Auto) 9.3 0.0-12.0 % Eosinophils (%) (Auto) 1.2 0.0-7.0 % Basophils (%) (Auto) 0.3 0.0-2.0 % Neutrophils # (Auto) 5.8 1.6-8.6 10 ^3/uL Lymphocytes # (Auto) 2.4 0.4-5.4 10 ^3/uL Monocytes # (Auto) 0.9 0-1.3 10 ^3/uL Eosinophils # (Auto) 0.1 0-0.8 10 ^3/uL Basophils # (Auto) 0 0-0.2 10 ^3/uL Nucleated Red Blood Cells 0.2 % Sodium Level 143 136-145 mmol/L Potassium Level 3.4 L 3.5-5.1 mmol/L Chloride Level 108 H 98-107 mmol/L Carbon Dioxide Level 24 20-31 mmol/L Anion Gap 11 5-15 Blood Urea Nitrogen 16 9-23 mg/dL Creatinine 1.74 H 0.700-1.30 mg/dL Glomerular Filtration Rate Calc 55 >90 mL/min BUN/Creatinine Ratio 9.2 L 10.0-20.0 Serum Glucose 97 74-106 mg/dL Calcium Level 9.7 8.7-10.4 mg/dL Total Bilirubin 0.7 0.2-1.0 mg/dL Aspartate Amino Transferase (AST) 12 <34 U/L Alanine Aminotransferase (ALT) 26 7-40 U/L Alkaline Phosphatase 71 46-116 U/L Total Protein 6.3 5.7-8.2 g/dL Albumin 4.2 3.2-4.8 g/dL D-Dimer, Quantitative < 0.19 0.0-0.49 mg/L FEU Magnesium Level 2.0 1.6-2.6 mg/dL Lipase 51 12-53 U/L Urine Color Yellow Yellow Urine Clarity Clear Clear Urine pH 6.0 5.0-9.0 Urine Specific [place] 1.035 1.001-1.035 Urine Protein Trace H Negative Urine Ketones 3+ H Negative Urine Blood Negative Negative /uL Urine Nitrite Negative Negative Urine Bilirubin Negative Negative Urine Urobilinogen Normal Negative mg/dL Urine Leukocyte Esterase Negative Negative /uL Urine RBC 3 0 - 3 /hpf Urine Microscopic WBC 3 0-3 /HPF Urine Squamous Epithelial Cells None seen <5 /hpf Urine Bacteria None seen None Seen /hpf Urine Mucus Few None Seen Urine Glucose Normal Normal mg/dL Urine Opiates Screen Neg NEGATIVE Urine Fentanyl Screen Neg NEGATIVE Urine Barbiturates Screen Neg NEGATIVE Urine Phencyclidine Screen Neg NEGATIVE Urine Amphetamines Screen Neg NEGATIVE Urine Benzodiazepines Screen Neg NEGATIVE Urine Cocaine Screen Neg NEGATIVE Urine Cannabinoids Screen Pos NEGATIVE Test 08/18/24 11:19 Range/Units POC Glucose 107 H 70-106 mg/dl Assessment 3 mm right distal UVJ stone Moderate right hydronephrosis Plan/Recommendation Expulsvie measures Right ESWL vs. URSLL as outpatient if he fails conservative management He is stable for discharge from standpoint Plan discussed with: Patient, Other JIMENA LOUIS MD Aug 20, 2024 16:15
[2024-08-21 01:00] VITALS: BP 112/66; PULSE 63; RESP 18; TEMP 98.3; O2SAT 97
[2024-08-21 05:00] VITALS: BP 108/66; PULSE 87; RESP 18; TEMP 97.9; O2SAT 100
[2024-08-21 06:27] LABS: Chloride 105 mmol/L (98-107); Sodium 141 mmol/L (136-145)
[2024-08-21 06:28] LABS: Anion Gap 12 (5-15); Calcium 9.3 mg/dL (8.7-10.4); Carbon Dioxide 24 mmol/L (20-31)
[2024-08-21 06:32] LABS: Potassium 3.4 mmol/L (3.5-5.1)
[2024-08-21 06:33] LABS: BUN/Creatinine Ratio 8.8 (10.0-20.0); Blood Urea Nitrogen 9 mg/dL (9-23); Glucose 91 mg/dL (74-106)
[2024-08-21 08:00] VITALS: PULSE 72; RESP 21; O2SAT 99
[2024-08-21 08:15] VITALS: BP 120/78; PULSE 72; RESP 21; TEMP 98; O2SAT 99
[2024-08-21] MEDS ORDERED: IBU600T PO (10:51)
[2024-08-21] MEDS ORDERED: CEPH250C PO (10:51)
[2024-08-21] MEDS ORDERED: TAMS-35 PO (10:51)
--- NOTE | 2024-08-21 10:53 | DVHDS2 ---
Discharge Summary Date of Admission Aug 18, 2024 at 19:18 Date of Discharge: Aug 21, 2024 Labs/Diagnostic Data: Laboratory Results Test 08/21/24 05:48 08/20/24 08:36 08/19/24 04:08 08/18/24 12:34 Sodium Level 141 mmol/L (136-145) Potassium Level 3.4 mmol/L (3.5-5.1) Chloride Level 105 mmol/L (98-107) Carbon Dioxide Level 24 mmol/L (20-31) Anion Gap 12 (5-15) Blood Urea Nitrogen 9 mg/dL (9-23) Creatinine 1.02 mg/dL (0.700-1.30) Glomerular Filtration Rate Calc 104 mL/min (>90) BUN/Creatinine Ratio 8.8 (10.0-20.0) Serum Glucose 91 mg/dL (74-106) Calcium Level 9.3 mg/dL (8.7-10.4) White Blood Count 9.3 10^3/uL (4.4-10.8) Red Blood Count 4.74 10^6/uL (4.5-5.90) Hemoglobin 15.3 g/dL (13.5-17.5) Hematocrit 42.6 % (41.0-53.0) Mean Corpuscular Volume 89.8 fL (80.0-100.0) Mean Corpuscular Hemoglobin 32.2 pg (28.0-32.0) Mean Corpuscular Hemoglobin Concent 35.8 g/dL (32.0-36.0) Red Cell Distribution Width 12.8 % (11.8-14.3) Platelet Count 246 10^3/uL (140-450) Mean Platelet Volume 8.8 fL (6.9-10.8) Neutrophils (%) (Auto) 63.1 % (37.0-80.0) Lymphocytes (%) (Auto) 26.1 % (10.0-50.0) Monocytes (%) (Auto) 9.3 % (0.0-12.0) Eosinophils (%) (Auto) 1.2 % (0.0-7.0) Basophils (%) (Auto) 0.3 % (0.0-2.0) Neutrophils # (Auto) 5.8 10 ^3/uL (1.6-8.6) Lymphocytes # (Auto) 2.4 10 ^3/uL (0.4-5.4) Monocytes # (Auto) 0.9 10 ^3/uL (0-1.3) Eosinophils # (Auto) 0.1 10 ^3/uL (0-0.8) Basophils # (Auto) 0 10 ^3/uL (0-0.2) Nucleated Red Blood Cells 0.2 % Total Bilirubin 0.7 mg/dL (0.2-1.0) Aspartate Amino Transferase (AST) 12 U/L (<34) Alanine Aminotransferase (ALT) 26 U/L (7-40) Alkaline Phosphatase 71 U/L (46-116) Total Protein 6.3 g/dL (5.7-8.2) Albumin 4.2 g/dL (3.2-4.8) D-Dimer, Quantitative < 0.19 mg/L FEU (0.0-0.49) Magnesium Level 2.0 mg/dL (1.6-2.6) Lipase 51 U/L (12-53) Test 08/18/24 11:23 08/18/24 11:19 Urine Color Yellow (Yellow) Urine Clarity Clear (Clear) Urine pH 6.0 (5.0-9.0) Urine Specific Jewett 1.035 (1.001-1.035) Urine Protein Trace (Negative) Urine Ketones 3+ (Negative) Urine Blood Negative /uL (Negative) Urine Nitrite Negative (Negative) Urine Bilirubin Negative (Negative) Urine Urobilinogen Normal mg/dL (Negative) Urine Leukocyte Esterase Negative /uL (Negative) Urine RBC 3 /hpf (0 - 3) Urine Microscopic WBC 3 /HPF (0-3) Urine Squamous Epithelial Cells None seen /hpf (<5) Urine Bacteria None seen /hpf (None Seen) Urine Mucus Few (None Seen) Urine Glucose Normal mg/dL (Normal) Urine Opiates Screen Neg (NEGATIVE) Urine Fentanyl Screen Neg (NEGATIVE) Urine Barbiturates Screen Neg (NEGATIVE) Urine Phencyclidine Screen Neg (NEGATIVE) Urine Amphetamines Screen Neg (NEGATIVE) Urine Benzodiazepines Screen Neg (NEGATIVE) Urine Cocaine Screen Neg (NEGATIVE) Urine Cannabinoids Screen Pos (NEGATIVE) POC Glucose 107 mg/dl (70-106) Other Laboratory Tests 08/21/24 05:48 08/19/24 04:08 Brief Hx & Hospital Course: 24 M with recent admission to OSH with kidney stones, pyelonephritis admitted for same. patient had 3 and 4mm stones per prior ct, on in house imaging we found 3mm stone with hydrouereteronephrosis. with nausea, vomiting. pt is sexually active with 1 female partner. completed home abx course. US still show 4mm stone in UVJ with mod hydronephrosis. johnny worsening. expulsive measures with OP follow up with urology for possible ESWL if not passing stone Condition at Discharge: Good Final Diagnosis/Problems List R hydroureteronephrosis R uretheral stones complicated and unresolving with expulsive treatment pyelonephritis? Discharge Disposition: Home Discharge Instruct/Medications Diet: Regular Activity: No Restrictions, As Tolerated Follow Up/Referral: urology [facility] Medications: keflex Discharge Statement: "Patient was advised to return to the ER or call 911 if any headaches, dizziness, shortness of breath, chest pain, abdominal pain, bleeding, fevers, or worsening of medical condition. Patient was counseled about treatment plan, medications, possible side effects, patientverbalized understanding. All questions were answered to the best of my ability. This discharge took greater then 30 minutes in planning, reviewing documentation, counseling the patient, and discussing with other team members." ASSESSMENT ASSESSMENT Assessment hydroureteronephrosis ureterolithiasis complicated Date of Service: Aug 21, 2024 Billing Provider: EFRA AZEVEDO MD Common Visit Codes: 87560-MWZ/OBS DISCH DAY >30min EFRA AZEVEDO MD Aug 21, 2024 10:53
[2024-08-21 12:17] VITALS: BP 120/78; PULSE 72; RESP 21; TEMP 98; O2SAT 99
[2024-08-21 12:26] VITALS: BP 123/82; PULSE 84; RESP 18; TEMP 97.7; O2SAT 99
[2024-08-21 14:07] LABS: Chlamydia Trachomatis, NAA Negative (Negative); Neisseria gonorrhoeae, NAA Negative (Negative)
== END 2024-08-21 13:08 | disposition home or self-care (01) | DRG 463 ==
LOC: ER 11:14 → OVERFLOW 19:18 → WEST WING 08-19 15:37
PROVIDERS: ADMIT Student in an Organized Health Care Education/Training Program; ATTEND Student in an Organized Health Care Education/Training Program
DX: N13.6 Pyonephrosis (principal); N17.0 Acute kidney failure with tubular necrosis; Z87.442 Personal history of urinary calculi
CPT/HCPCS: 36415; 71046; 74176; 76775; 80048; 80053; 80307; 81001; 82962; 83690; 83735; 85025; 85379; 93005; 96361; 96374; 96375; G0378; J1885; J2405; J2470